=== PATIENT | male | born 1995 | race Caucasian/White ===

== ENCOUNTER 2018-02-12 23:35 | Emergency (ER) | payer OTHER, BC ==
[~2018-02-12] VITALS: Ht 180.3 cm; Wt 102.1 kg
--- OUTSIDE RECORDS SUMMARY | ~2018-02-12 | XMS | Clinical Summary ---
Demographics + + + | Address | [address] | | | [place] [address] | + + + | Home Phone | | + + + | Preferred Language | Unknown | + + + | Marital Status | Single | + + + | Taoism Affiliation | NON | + + + | Race | White | + + + | Ethnic Group | Not or | + + + Author + + + | Organization | Unknown | + + + | Address | Unknown | + + + | Phone | Unavailable | + + + Support + + + + + | Name | Relationship | Address | Phone | + + + + + | CROW HAYES | ECON | [address] | | | | | [place] | | | | | [phone] | | + + + + + Care Team Providers + +------+ + | Care Tester Operator Name | Role | Phone | + +------+ + PP | Unavailable | + +------+ + Source Comments [facility] is fully live on both [facility] and [facility] Allergies No Known Allergies Current Medications Not on file Active Problems Not on file Social History + +-------+ +--------+------+ | Tobacco Use | Types | Packs/Day | Years | Date | | | | | Used | | + +-------+ +--------+------+ | Never Assessed | | | | | + +-------+ +--------+------+ + + + | Sex Assigned at | Date Recorded | | | | + + + | Not on file | | + + + Plan of Treatment + + + + + | Health Maintenance | Due Date | Last Done | Comments | + + + + + | INFLUENZA VACCINE | | | | | (FLU SHOT) | 8 | | | + + + + + Results Not on filefrom Last 3 Months"
--- OUTSIDE RECORDS SUMMARY | ~2018-02-12 | XMS | Clinical Summary ---
Demographics + + + | Address | [address] | | | [place] [address] | + + + | Home Phone | | + + + | Preferred Language | Unknown | + + + | Marital Status | Single | + + + | Nondenominational Affiliation | NON | + + + [...] [place] | | | | | [phone] | | + + + + + Care Team Providers + +------+ + | Care Plant Operator Helper Name | Role | Phone | + +------+ + PP | Unavailable | + +------+ + Source Comments [facility] is fully live on both [facility] and [facility] Allergies No Known Allergies Current Medications Not [...]
[~2018-02-12 23:35] MED LIST: PREDNISONE5 MG PO; PRILOSEC10 M1 PO
== END 2018-02-13 00:53 | disposition home or self-care (01) ==
LOC: ED 23:35
DX: Z77.21 Contact with and (suspected) exposure to potentially hazardous body fluids (principal); Z88.0 Allergy status to penicillin; Z79.52 Long term (current) use of systemic steroids; Z79.899 Other long term (current) drug therapy
CPT/HCPCS: 36415; 86703; 86706; 86803; 99283

== ENCOUNTER 2020-05-12 13:30 | Emergency (ER) | payer OTHER, BC ==
[~2020-05-12] VITALS: Ht 180.3 cm; Wt 102.1 kg
== END 2020-05-12 15:13 | disposition home or self-care (01) ==
LOC: ED 13:30
PROC: 0HQGXZZ Repair Left Hand Skin, External Approach (ICD-10-PCS; principal; 2020-05-12)
DX: S61.412A Laceration without foreign body of left hand, initial encounter (principal); Z23 Encounter for immunization; Z88.0 Allergy status to penicillin; W29.3XXA Contact with powered garden and outdoor hand tools and machinery, initial encounter
CPT/HCPCS: 12001; 90471; 90715; 99282-25

== ENCOUNTER 2023-06-04 16:28 | Emergency (ER) | payer OTHER, BC ==
[~2023-06-04] VITALS: Ht 180.3 cm; Wt 102.1 kg
[2023-06-04] MEDS ORDERED: CEPHALEXIN500 MG PO (16:51)
[2023-06-04 17:02] VITALS: BP 140/72
== END 2023-06-04 17:05 | disposition home or self-care (01) ==
LOC: ED 16:28
DX: S71.111A Laceration without foreign body, right thigh, initial encounter (principal); W26.8XXA Contact with other sharp object(s), not elsewhere classified, initial encounter; Y99.0 Civilian activity done for income or pay; Z88.0 Allergy status to penicillin; Z23 Encounter for immunization
CPT/HCPCS: 12001; 90471; 90715; 99282-25; A9270